=== PATIENT | male | born 1990 | race American Indian/Alaskan Native ===

== ENCOUNTER 2019-05-18 03:21 | Emergency (ER) | payer SELFPAY ==
[2019-05-18] MEDS ORDERED: PROVENTIL IH ONE (03:49)
[2019-05-18] MEDS ORDERED: DECADRON IM ONE (03:49)
[2019-05-18] MEDS ORDERED: ATROVENT IH ONE (03:49)
--- NOTE | 2019-05-18 04:15 | Emergency Department Report ---
ED Asthma HPI - General Chief Complaint: Adult Asthma Stated Complaint: ASTHMA AND EARACHE Time Seen by Provider: 05/18/19 03:38 Source: patient Mode of arrival: Ambulatory Limitations: No Limitations - History of Present Illness Initial Comments: Patient is a 29-year-old male who presents to the emergency Department with complaints of shortness of breath and wheezing that began yesterday. He denies any cough or fever. Patient has a past medical history of asthma and uses a pro-air inhaler. He states he has not had an inhaler in a month due to moving from [place]. He states he also has difficulty hearing from his right ear. He states he tried to get earwax out of his right ear using peroxide. He denies any right ear pain or draining from the ear. He has a past medical history of diabetes, hypertension. He denies any allergies to medications. He is an occasional smoker, nondrinker, denies drug use. - Related Data Previous Rx's Medication Instructions Recorded Last Taken Type Prednisone [predniSONE 10 mg 10 mg PO .TAPER #1 tab.ds.pk 10/15/15 Unknown Rx (6-Day Pack, 21 Tabs)] ALBUTEROL NEB's [Proventil 0.083% 2.5 mg IH Q4H PRN #1 box 10/21/16 Unknown Rx NEBS] Albuterol Sulfate [Ventolin HFA] 2 puff IH Q4H PRN #1 hfa.aer.ad 10/21/16 Unknown Rx predniSONE [Deltasone] 50 mg PO QDAY #5 tab 10/21/16 Unknown Rx ALBUTEROL Inhaler (OR & NICU) 2 puff IH QID PRN #1 inhalation 05/18/19 Unknown Rx [ProAir HFA Inhaler] Allergies Allergy/AdvReac Type Severity Reaction Status Date / Time Penicillins AdvReac Unknown Verified 10/15/15 06:38 ED Review of Systems ROS: Stated complaint: ASTHMA AND EARACHE Other details as noted in HPI Comment: All other systems reviewed and negative ED Past Medical Hx - Past Medical History Previous Medical History?: Yes Hx Hypertension: Yes Hx Diabetes: Yes Hx Asthma: Yes - Surgical History Past Surgical History?: No - Social History Smoking Status: Current Every Day Smoker Substance Use Type: None - Medications Home Medications: Home Medications Medication Instructions Recorded Confirmed Last Taken Type Prednisone [predniSONE 10 mg 10 mg PO .TAPER #1 tab.ds.pk 10/15/15 Unknown Rx (6-Day Pack, 21 Tabs)] ALBUTEROL NEB's [Proventil 0.083% 2.5 mg IH Q4H PRN #1 box 10/21/16 Unknown Rx NEBS] Albuterol Sulfate [Ventolin HFA] 2 puff IH Q4H PRN #1 hfa.aer.ad 10/21/16 Unknown Rx predniSONE [Deltasone] 50 mg PO QDAY #5 tab 10/21/16 Unknown Rx ALBUTEROL Inhaler (OR & NICU) 2 puff IH QID PRN #1 inhalation 05/18/19 Unknown Rx [ProAir HFA Inhaler] ED Physical Exam - General Limitations: No Limitations General appearance: alert, in no apparent distress - Head Head exam: Present: atraumatic, normocephalic - Eye Eye exam: Present: normal appearance, PERRL - ENT ENT exam: Present: normal orophraynx, other (normal canal and TM on the left side, right ear canal with cerumen impaction and bubbles present from perioxide use, clear nasal drainage bilaterally ) - Respiratory Respiratory exam: Present: respiratory distress (moderate), decreased breath sounds (very poor air movement bilaterally). Absent: rales, rhonchi, stridor, accessory muscle use - Cardiovascular Cardiovascular Exam: Present: regular rate, normal rhythm, normal heart sounds. Absent: systolic murmur, diastolic murmur, rubs, gallop - Neurological Exam Neurological exam: Present: alert, oriented X3 - Psychiatric Psychiatric exam: Present: normal affect, normal mood - Skin Skin exam: Present: warm, dry, intact ED Course Vital Signs 05/18/19 05/18/19 05/18/19 03:30 04:28 06:46 Temperature 98.3 F Pulse Rate 87 77 Pulse Rate [ 82 Bilateral Throughout] Respiratory 20 20 Rate Respiratory 20 Rate [Bilateral Throughout] Blood Pressure 136/74 Blood Pressure 139/92 [Left] O2 Sat by Pulse 94 96 Oximetry - Reevaluation(s) Reevaluation #1: 05/18/19 06:36 s/p neb tx, pt has good air movement, no w/r/r - Ear Wax Removal Right Ear Ear Canal Irrigated by: RN Ear Canal Irrigated With: warm saline with H2O2 using syringe/angiocath Results: Re-examined: cerumen removed completel TM Visible: TM(s) intact, normal appe Ear Canal: atraumatic Patient Tolerated Procedure: well Complications: no problems Additional Comments: pt states hearing is significantly better s/p wax removal ED Medical Decision Making - Lab Data Vital Signs 05/18/19 05/18/19 05/18/19 03:30 04:28 06:46 Temperature 98.3 F Pulse Rate 87 77 Pulse Rate [ 82 Bilateral Throughout] Respiratory 20 20 Rate Respiratory 20 Rate [Bilateral Throughout] Blood Pressure 136/74 Blood Pressure 139/92 [Left] O2 Sat by Pulse 94 96 Oximetry - Radiology Data Radiology results: report reviewed PROCEDURE: XR CHEST ROUTINE 2V TECHNIQUE: PA and lateral chest radiographs were obtained. HISTORY: SOB, hx of asthma COMPARISONS: None available. FINDINGS: No mediastinal shift. Cardiac silhouette is not enlarged. No pneumothorax, effusion, or focal pulmonary opacity. No acute skeletal finding. IMPRESSION: No focal pulmonary opacity. This document is electronically signed by Ruddy Cross MD., May 18 2019 05:06:09 AM ET Transcribed By: SHANNAN Dictated By: RUDDY CROSS MD Electronically Authenticated By: RUDDY CROSS MD Signed Date/Time: 05/18/19 5314 - Medical Decision Making Patient is a 29-year-old male who presents to the emergency Department with complaints of shortness of breath and wheezing that began yesterday. He denies any cough or fever. Patient has a past medical history of asthma and uses a pro-air inhaler. He states he has not had an inhaler in a month due to moving from [place]. He states he also has difficulty hearing from his right ear. He states he tried to get earwax out of his right ear using peroxide. He denies any right ear pain or draining from the ear. He has a past medical history of diabetes, hypertension. He denies any allergies to medications. He is an occasional smoker, nondrinker, denies drug use. initial vitals with oxygen saturation of 94% on RA. s/p neb tx improved to 96% on RA, rest of vitals are normal. CXR with no acute process. on exam: normal canal and TM on the left side, right ear canal with cerumen impaction and bubbles present from perioxide use, clear nasal drainage bilaterally, initially lung exam with very poor air movement and moderate respiratory distress. pt given 10 mg of albuterol, 1 mg of atrovent, and 10 mg of dexamethasone, lung sounds improved significantly with good air movement and no w/r/r. cerumen impaction removal by RN per procedure note, after removal pt right canal and TM are normal with no TM perforation. pt given refill of his proair inhaler. advised to please use medication as prescribed as needed. Follow up with a primary care doctor in the next 2-3 days. Return to the emergency room for any new or worsening symptoms. Critical care attestation.: If time is entered above; I have spent that time in minutes in the direct care of this critically ill patient, excluding procedure time. ED Disposition Clinical Impression: Impacted cerumen, right ear Asthma Qualifiers: Asthma severity: unspecified severity Asthma persistence: unspecified Asthma complication type: with acute exacerbation Qualified Code(s): J45.901 - Unspecified asthma with (acute) exacerbation Disposition: TO HOME OR SELFCARE Is pt being admited?: No Does the pt Need Aspirin: No Condition: Stable Instructions: Asthma (ED), Cerumen Impaction (ED) Additional Instructions: Please use medication as prescribed as needed. Follow up with a primary care doctor in the next 2-3 days. Return to the emergency room for any new or worsening symptoms. Prescriptions: ALBUTEROL Inhaler (OR & NICU) [ProAir HFA Inhaler] 2 puff IH QID PRN #1 inhalation PRN Reason: Shortness Of Breath Referrals: OMARI LUIS MD [Primary Care Provider] - 2-3 Days [facility] [Outside] - 2-3 Days [facility] [Outside] - 2-3 Days Time of Disposition: 06:38 Print Language: SWAZI
[2019-05-18] MEDS ORDERED: HYDROGEN PEROXIDE IRRIGATION ONE (04:34)
--- NOTE | 2019-05-18 05:08 | XRay Report ---
PROCEDURE: XR CHEST ROUTINE 2V TECHNIQUE: PA and lateral chest radiographs were obtained. HISTORY: SOB, hx of asthma COMPARISONS: None available. FINDINGS: No mediastinal shift. Cardiac silhouette is not enlarged. No pneumothorax, effusion, or focal pulmo nary opacity. No acute skeletal finding. IMPRESSION: No focal pulmonary opacity. This document is electronically signed by Rob Marshall MD., May 18 2019 05:06:09 AM ET
[2019-05-18 06:47] VITALS: BP 139/92
== END 2019-05-18 06:47 | disposition home or self-care (01) ==
LOC: ED 03:21
DX: J45.901 Unspecified asthma with (acute) exacerbation (principal); H61.21 Impacted cerumen, right ear; I10 Essential (primary) hypertension; E11.9 Type 2 diabetes mellitus without complications; F17.200 Nicotine dependence, unspecified, uncomplicated; Z79.899 Other long term (current) drug therapy; Z88.0 Allergy status to penicillin
CPT/HCPCS: 71046; 94644; 96372; 99283; J1100

== ENCOUNTER 2019-06-10 00:50 | Emergency (ER) | payer SELFPAY ==
[2019-06-10] MEDS ORDERED: DUONEB *Not for PRN Use IH ONE ×2 (00:55→00:57)
--- NOTE | 2019-06-10 02:16 | Emergency Department Report ---
ED Shortness of Breath HPI - General Chief Complaint: Dyspnea/Respdistress Stated Complaint: ASTHMA Time Seen by Provider: 06/10/19 02:05 Source: patient Mode of arrival: Ambulatory Limitations: No Limitations - History of Present Illness Initial Comments: Patient 29-year-old [place] male who presents for shortness of breath and wheezing 3 days states out of asthma medicine there is no fever no chills no nausea vomiting symptoms are exacerbated by environmental exposure symptoms are relieved by nothing patient tolerates attack at 3/10 MD Complaint: shortness of breath, cough, "asthma attack" Onset/Timin -: days(s) Severity: moderate Pain Scale: 3 Consistency: intermittent Improves With: nothing Worsens With: other (environmental exposure ) Known History Of: asthma Context: other (out of medications) Associated Symptoms: cough, other (wheezing ) Treatments Prior to Arrival: none - Related Data Home Oxygen Therapy: No Previous Rx's Medication Instructions Recorded Last Taken Type Prednisone [predniSONE 10 mg 10 mg PO .TAPER #1 tab.ds.pk 10/15/15 Unknown Rx (6-Day Pack, 21 Tabs)] ALBUTEROL NEB's [Proventil 0.083% 2.5 mg IH Q4H PRN #1 box 10/21/16 Unknown Rx NEBS] Albuterol Sulfate [Ventolin HFA] 2 puff IH Q4H PRN #1 hfa.aer.ad 10/21/16 Unknown Rx predniSONE [Deltasone] 50 mg PO QDAY #5 tab 10/21/16 Unknown Rx ALBUTEROL Inhaler (OR & NICU) 2 puff IH QID PRN #1 inhalation 06/10/19 Unknown Rx [ProAir HFA Inhaler] Azithromycin [Zithromax Z-ZENON] 250 mg PO DAILY 5 Days #6 tab 06/10/19 Unknown Rx Benzonatate [Tessalon Perles] 100 mg PO Q8HR PRN #30 capsule 06/10/19 Unknown Rx Ibuprofen [Motrin 800 MG tab] 800 mg PO Q8HR PRN #30 tablet 06/10/19 Unknown Rx predniSONE [Deltasone] 40 mg PO QDAY 5 Days #10 tab 06/10/19 Unknown Rx Allergies Allergy/AdvReac Type Severity Reaction Status Date / Time No Known Allergies Allergy Verified 06/10/19 00:55 ED Review of Systems ROS: Stated complaint: ASTHMA Other details as noted in HPI Constitutional: denies: chills, fever Eyes: denies: eye pain, eye discharge, vision change ENT: denies: ear pain, throat pain Respiratory: cough, shortness of breath, wheezing Cardiovascular: denies: chest pain, palpitations Endocrine: no symptoms reported Gastrointestinal: denies: abdominal pain, nausea, vomiting, diarrhea Genitourinary: denies: urgency, dysuria Musculoskeletal: denies: back pain, joint swelling, arthralgia Skin: denies: rash, lesions Neurological: denies: headache, weakness, paresthesias Psychiatric: denies: anxiety, depression Hematological/Lymphatic: denies: easy bleeding, easy bruising ED Past Medical Hx - Past Medical History Previous Medical History?: Yes Hx Hypertension: Yes Hx Diabetes: Yes Hx Asthma: Yes - Surgical History Past Surgical History?: No - Social History Smoking Status: Never Smoker Substance Use Type: None - Medications Home Medications: Home Medications Medication Instructions Recorded Confirmed Last Taken Type Prednisone [predniSONE 10 mg 10 mg PO .TAPER #1 tab.ds.pk 10/15/15 Unknown Rx (6-Day Pack, 21 Tabs)] ALBUTEROL NEB's [Proventil 0.083% 2.5 mg IH Q4H PRN #1 box 10/21/16 Unknown Rx NEBS] Albuterol Sulfate [Ventolin HFA] 2 puff IH Q4H PRN #1 hfa.aer.ad 10/21/16 Unknown Rx predniSONE [Deltasone] 50 mg PO QDAY #5 tab 10/21/16 Unknown Rx ALBUTEROL Inhaler (OR & NICU) 2 puff IH QID PRN #1 inhalation 06/10/19 Unknown Rx [ProAir HFA Inhaler] Azithromycin [Zithromax Z-ZENON] 250 mg PO DAILY 5 Days #6 tab 06/10/19 Unknown Rx Benzonatate [Tessalon Perles] 100 mg PO Q8HR PRN #30 capsule 06/10/19 Unknown Rx Ibuprofen [Motrin 800 MG tab] 800 mg PO Q8HR PRN #30 tablet 06/10/19 Unknown Rx predniSONE [Deltasone] 40 mg PO QDAY 5 Days #10 tab 06/10/19 Unknown Rx ED Physical Exam - General Limitations: No Limitations General appearance: alert, in no apparent distress - Head Head exam: Present: atraumatic, normocephalic - Eye Eye exam: Present: normal appearance, PERRL, EOMI Pupils: Present: normal accommodation - ENT ENT exam: Present: normal orophraynx, mucous membranes moist, TM's normal bilaterally, normal external ear exam - Neck Neck exam: Present: normal inspection. Absent: tenderness, meningismus, full ROM, lymphadenopathy, thyromegaly - Respiratory Respiratory exam: Present: normal lung sounds bilaterally, wheezes (exp wheezing noted bilat ), decreased breath sounds (bilat bases ). Absent: respiratory distress, rales, rhonchi, stridor, chest wall tenderness - Cardiovascular Cardiovascular Exam: Present: regular rate, normal rhythm, normal heart sounds. Absent: systolic murmur, diastolic murmur, rubs, gallop - GI/Abdominal GI/Abdominal exam: Present: soft, normal bowel sounds. Absent: distended, tenderness, guarding, rebound, rigid, bruit, hernia - Rectal Rectal exam: Present: deferred - Extremities Exam Extremities exam: Present: full ROM, normal capillary refill. Absent: tenderness, pedal edema, joint swelling, calf tenderness - Back Exam Back exam: Present: normal inspection, full ROM. Absent: tenderness, CVA tenderness (R), CVA tenderness (L), rash noted - Neurological Exam Neurological exam: Present: alert, oriented X3, CN II-XII intact, normal gait, reflexes normal. Absent: motor sensory deficit - Psychiatric Psychiatric exam: Present: normal affect, normal mood - Skin Skin exam: Present: warm, dry, normal color. Absent: intact, rash ED Course Vital Signs 06/10/19 00:53 Temperature 97.9 F Pulse Rate 87 Respiratory 18 Rate Blood Pressure 157/88 O2 Sat by Pulse 96 Oximetry ED Medical Decision Making - Medical Decision Making wheezing improved pt ambulatory from room to main ed and back to room without increase sob , pt advised breathing is back to baseline, requesting refill of proair inhalers , will rx same, prednisone, ibuprofen, tessalon pearls pt wtill follow up with pcp in 2-3 days pt is currently a/o x 3 amblatory with steady agait at this time. pt to home in stable condition. Critical care attestation.: If time is entered above; I have spent that time in minutes in the direct care of this critically ill patient, excluding procedure time. ED Disposition Clinical Impression: Asthma Qualifiers: Asthma severity: moderate Asthma persistence: persistent Asthma complication type: uncomplicated Qualified Code(s): J45.40 - Moderate persistent asthma, uncomplicated Disposition: DC-01 TO HOME OR SELFCARE Is pt being admited?: No Does the pt Need Aspirin: No Condition: Stable Instructions: Asthma (ED) Prescriptions: predniSONE [Deltasone] 40 mg PO QDAY 5 Days #10 tab Ibuprofen [Motrin 800 MG tab] 800 mg PO Q8HR PRN #30 tablet PRN Reason: pain fever ALBUTEROL Inhaler (OR & NICU) [ProAir HFA Inhaler] 2 puff IH QID PRN #1 inhalation PRN Reason: Shortness Of Breath Benzonatate [Tessalon Perles] 100 mg PO Q8HR PRN #30 capsule PRN Reason: Cough Azithromycin [Zithromax Z-ZENON] 250 mg PO DAILY 5 Days #6 tab Forms: Work/School Release Form(ED) Time of Disposition: 02:27
[2019-06-10 04:30] VITALS: BP 132/76
== END 2019-06-10 02:50 | disposition home or self-care (01) ==
LOC: ED 00:50
DX: J45.20 Mild intermittent asthma, uncomplicated (principal); I10 Essential (primary) hypertension; E11.9 Type 2 diabetes mellitus without complications; Z79.899 Other long term (current) drug therapy
CPT/HCPCS: 99282

== ENCOUNTER 2019-07-04 12:56 | Emergency (ER) | payer SELFPAY ==
--- NOTE | 2019-07-04 13:07 | Emergency Department Report ---
Blank Doc - Documentation Documentation: This is a 29-year-old male that presents with dizziness and new onset of heada bakari. Denies thunderclap headache. Denies any other symptoms of complaints. This initial assessment/diagnostic orders/clinical plan/treatment(s) is/are subject to change based on patient's health status, clinical progression and re- assessment by fellow clinical providers in the ED. Further treatment and workup at subsequent clinical providers discretion. Patient/guardians urged not to elope from the ED as their condition may be serious if not clinically assessed and managed. Initial orders include: 1- Patient sent to [facility] for further evaluation and treatment 2- labs 3- CT head
[2019-07-04 13:08] VITALS: BP 132/77
--- NOTE | 2019-07-04 14:08 | Cat Scan Report ---
CT HEAD WITHOUT CONTRAST INDICATION : Headache and dizziness for one day. TECHNIQUE: Axial imaging performed from the skull apex through the skull base without the use of con trast. Sagittal and coronal reformatted images. All CT scans at this location are performed using C T dose reduction for ALARA by means of automated exposure control. COMPARISON: None FINDINGS: Parenchyma: No acute intracranial hemorrhage or parenchymal abnormality. Ventricles: Ventricles are normal in size and appear symmetric. Bones: No acute osseous abnormality. Sinuses: There is mild fluid or mucosal thickening in the ethmoid air cells and superior right maxil yomi sinus. The remaining sinuses and mastoid air cells are adequately aerated. Soft tissues: Soft tissues including the orbits appear normal. IMPRESSION: Normal CT brain. Mild ethmoid and right maxillary sinus disease. Signer Name: Christiano Bean Jr, MD Signed: 07/04/2019 2:04 PM Workstation Name: [id number]
[2019-07-04 14:34] LABS: Hematocrit 43.6 % (35.5-45.6); Hemoglobin 14.5 gm/dl (11.8-15.2); Mean Corpuscular HGB Conc 33 % (32-34); Mean Corpuscular Volume 89 fl (84-94); Platelet Count 258 K/mm3 (140-440); Red Blood Count 4.88 M/mm3 (3.65-5.03); Red Cell Distribution Width 15.1 % (13.2-15.2)
[2019-07-04 14:49] LABS: BUN/Creatinine Ratio 9; Blood Urea Nitrogen 14 mg/dL (9-20); Calcium 9.2 mg/dL (8.4-10.2); Hemolysis Index 48
[2019-07-04 16:29] LABS: Basophils % (Manual) 0 % (0.0-1.8); Total Cells Counted 100
[2019-07-04 16:31] LABS: Anisocytosis 1+; Ovalocytes Few; Tear Drop Cells Few
== END 2019-07-04 16:01 | disposition left against medical advice (07) ==
LOC: ED 12:56
DX: R51 Headache (principal); Z53.21 Procedure and treatment not carried out due to patient leaving prior to being seen by health care provider
CPT/HCPCS: 36415; 70450; 80048; 85007; 85025

== ENCOUNTER 2020-09-05 15:18 | Emergency (ER) | payer OTHER ==
[2020-09-05] MEDS ORDERED: IPRATROPIUM 0.02% NEBU 2.5 ML IH ONE (15:23)
[2020-09-05] MEDS ORDERED: ALBUTEROL 2.5 MG/3 ML NEBU IH ONE (15:23)
--- NOTE | 2020-09-05 16:32 | Emergency Department Report ---
ED General Adult HPI - General Chief complaint: Adult Asthma Stated complaint: ASTHMA Time Seen by Provider: 09/05/20 15:22 Source: patient Mode of arrival: Ambulatory Limitations: No Limitations - History of Present Illness Initial comments: 30-year-old -[place] male patient presents with complaints of sudden onset of wheezing and shortness of breath x today. Patient states this feels like his asthma and that he ran out of his albuterol inhaler. He has history of diabetes and hypertension. He denies any cough, hemoptysis, chest pain, fev er/chills/sweats, or lower extremity swelling. -: Sudden - Related Data Previous Rx's Medication Instructions Recorded Last Taken Type Prednisone [predniSONE 10 mg 10 mg PO .TAPER #1 tab.ds.pk 10/15/15 Unknown Rx (6-Day Pack, 21 Tabs)] ALBUTEROL NEB's [Proventil 0.083% 2.5 mg IH Q4H PRN #1 box 10/21/16 Unknown Rx NEBS] Albuterol Sulfate [Ventolin HFA] 2 puff IH Q4H PRN #1 hfa.aer.ad 10/21/16 Unknown Rx predniSONE [Deltasone] 50 mg PO QDAY #5 tab 10/21/16 Unknown Rx Azithromycin [Zithromax Z-ZENON] 250 mg PO DAILY 5 Days #6 tab 06/10/19 Unknown Rx Benzonatate [Tessalon Perles] 100 mg PO Q8HR PRN #30 capsule 06/10/19 Unknown Rx Ibuprofen [Motrin 800 MG tab] 800 mg PO Q8HR PRN #30 tablet 06/10/19 Unknown Rx predniSONE [Deltasone] 40 mg PO QDAY 5 Days #10 tab 06/10/19 Unknown Rx Albuterol Mdi (or & Nicu Only) 2 puff IH QID PRN 30 Days #1 09/05/20 Unknown Rx [ProAir HFA Inhaler] inhalation Allergies Allergy/AdvReac Type Severity Reaction Status Date / Time No Known Allergies Allergy Verified 06/24/20 12:08 ED Review of Systems ROS: Stated complaint: ASTHMA Other details as noted in HPI Constitutional: denies: chills, diaphoresis, fever, malaise, weakness ENT: denies: throat pain Respiratory: shortness of breath, SOB at rest, wheezing Cardiovascular: denies: chest pain Gastrointestinal: denies: abdominal pain, nausea, vomiting Skin: denies: change in color Neurological: denies: headache ED Past Medical Hx - Past Medical History Previous Medical History?: Yes Hx Hypertension: Yes Hx Diabetes: Yes Hx Asthma: Yes - Social History Smoking Status: Never Smoker Substance Use Type: None - Medications Home Medications: Home Medications Medication Instructions Recorded Confirmed Last Taken Type Prednisone [predniSONE 10 mg 10 mg PO .TAPER #1 tab.ds.pk 10/15/15 Unknown Rx (6-Day Pack, 21 Tabs)] ALBUTEROL NEB's [Proventil 0.083% 2.5 mg IH Q4H PRN #1 box 10/21/16 Unknown Rx NEBS] Albuterol Sulfate [Ventolin HFA] 2 puff IH Q4H PRN #1 hfa.aer.ad 10/21/16 Unknown Rx predniSONE [Deltasone] 50 mg PO QDAY #5 tab 10/21/16 Unknown Rx Azithromycin [Zithromax Z-ZENON] 250 mg PO DAILY 5 Days #6 tab 06/10/19 Unknown Rx Benzonatate [Tessalon Perles] 100 mg PO Q8HR PRN #30 capsule 06/10/19 Unknown Rx Ibuprofen [Motrin 800 MG tab] 800 mg PO Q8HR PRN #30 tablet 06/10/19 Unknown Rx predniSONE [Deltasone] 40 mg PO QDAY 5 Days #10 tab 06/10/19 Unknown Rx Albuterol Mdi (or & Nicu Only) 2 puff IH QID PRN 30 Days #1 09/05/20 Unknown Rx [ProAir HFA Inhaler] inhalation ED Physical Exam - General Limitations: No Limitations General appearance: alert, in no apparent distress - Head Head exam: Present: atraumatic - Eye Eye exam: Present: normal appearance - ENT ENT exam: Present: mucous membranes moist - Neck Neck exam: Present: normal inspection - Respiratory Respiratory exam: Present: wheezes (Diffuse), decreased breath sounds (Diffuse). Absent: rales, rhonchi, stridor, chest wall tenderness - Cardiovascular Cardiovascular Exam: Present: regular rate, normal rhythm - GI/Abdominal GI/Abdominal exam: Present: soft. Absent: tenderness - Extremities Exam Extremities exam: Present: normal inspection, other (No lower extremity sw elling/edema noted) - Back Exam Back exam: Present: normal inspection - Neurological Exam Neurological exam: Present: alert, oriented X3, normal gait - Psychiatric Psychiatric exam: Present: normal affect, normal mood - Skin Skin exam: Present: warm, dry, intact, normal color. Absent: rash, cyanosis, diaphoretic, ecchymosis ED Course Vital Signs 09/05/20 09/05/20 09/05/20 15:22 15:24 15:33 Temperature 98.2 F Pulse Rate 103 H Pulse Rate [ 95 H Posterior Bilateral Throughout] Respiratory 22 Rate Respiratory 21 Rate [Posterior Bilateral Throughout] Blood Pressure 148/89 Blood Pressure [Left] O2 Sat by Pulse 96 Oximetry 09/05/20 17:17 Temperature 97.1 F L Pulse Rate 92 H Pulse Rate [ Posterior Bilateral Throughout] Respiratory 16 Rate Respiratory Rate [Posterior Bilateral Throughout] Blood Pressure Blood Pressure 155/67 [Left] O2 Sat by Pulse 97 Oximetry ED Medical Decision Making - Radiology Data Radiology results: report reviewed - Medical Decision Making 30-year-old -[place] male patient presents with complaints of sudden onset of wheezing and shortness of breath x today. Patient states this feels like his asthma and that he ran out of his albuterol inhaler. He has history of diabetes and hypertension. He denies any cough, hemoptysis, chest pain, fever/chills/sweats, or lower extremity swelling. Diffuse wheezing and decreased breath sounds noted on exam. No rales or rhonchi are noted. Patient given hour-long DuoNeb and states his shortness of breath has completely resolved. Lungs on repeat exam are clear to auscultation bilaterally. Chest x-ray is negative for any acute findings. Patient provided with refill of albuterol. No steroids given due to diabetes. He is well- appearing stable for discharge home. Strict return precautions were discussed in detail with patient who verbalized understanding. Patient to follow-up with his primary care doctor within 3 to 5 days. Critical care attestation.: If time is entered above; I have spent that time in minutes in the direct care of this critically ill patient, excluding procedure time. ED Disposition Clinical Impression: Asthma exacerbation Qualifiers: Asthma severity: mild Asthma persistence: intermittent Qualified Code(s): J45.21 - Mild intermittent asthma with (acute) exacerbation Disposition: TO HOME OR SELFCARE Is pt being admited?: No Condition: Stable Instructions: Asthma (ED) Prescriptions: Albuterol Mdi (or & Nicu Only) [ProAir HFA Inhaler] 2 puff IH QID PRN 30 Days #1 inhalation PRN Reason: Shortness Of Breath Referrals: [facility] [Provider Group] - 3-5 Days
[2020-09-05 17:19] VITALS: BP 155/67
--- NOTE | 2020-09-05 17:31 | XRay Report ---
CHEST 2 VIEWS INDICATION: shortness of breath. COMPARISON: 05/18/2019 FINDINGS: Support devices: None. Heart: Within normal limits. Lungs: No acute air space or interstitial disease. Pleura: No significant pleural effusion. No pneumothorax. Additional findings: None. IMPRESSION: 1. No acute findings. Signer Name: Wellington Haque MD Signed: 09/05/2020 5:27 PM Workstation Name: [id number]
== END 2020-09-05 17:22 | disposition home or self-care (01) ==
LOC: ED 15:18
DX: J45.901 Unspecified asthma with (acute) exacerbation (principal); I10 Essential (primary) hypertension; E11.9 Type 2 diabetes mellitus without complications; Z79.1 Long term (current) use of non-steroidal anti-inflammatories (NSAID); Z79.2 Long term (current) use of antibiotics
CPT/HCPCS: 71046; 94644; 99283